=== PATIENT | female | born 1935 | race Two or more races ===

== ENCOUNTER 2024-03-01 12:44 | Emergency (ER) | payer MEDICAID, SELFPAY ==
[2024-03-01 13:05] VITALS: BP 168/85; PULSE 71; RESP 19; TEMP 36.8; O2SAT 98; BMI 23.6
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
== END 2024-03-01 14:59 | disposition home or self-care (01) ==
PROVIDERS: Emergency Provider Emergency Medicine; PCP Family Medicine
DX: S32.592A Other specified fracture of left pubis, initial encounter for closed fracture (principal); S32.591A Other specified fracture of right pubis, initial encounter for closed fracture; S79.922A Unspecified injury of left thigh, initial encounter; S89.92XA Unspecified injury of left lower leg, initial encounter; W19.XXXA Unspecified fall, initial encounter
CPT/HCPCS: 73522; 73552; 73562; 99283

== ENCOUNTER 2024-11-26 09:01 | Outpatient (AMB) | payer MEDICAID, SELFPAY ==
--- NOTE | 2024-11-26 09:20 | ORTHONT_ITS ---
Vital signs 11/26/24 09:23 Height 1.4 m Height Method Measured Weight 39.094 kg Weight Measurement Method Standing Scale BMI 20.0 BP 155/81 H Blood Pressure Source Automatic Cuff Blood Pressure Location Left Upper Arm Position Sitting Respiration 19 Pulse 81 Pulse Source Monitor Temp 96.9 F Temp Source Temporal Artery Scan Pulse Oximetry (%) 94 L Oxygen Delivery Method Room Air Med/Allergies Allergies & Medications Allergies Penicillins Allergy (Severe, Verified 11/26/24 09:23) Hives Medication Reconciliation atorvastatin 40 mg tablet 40 mg PO 1XD 03/18/23 [History Confirmed 11/26/24] calcium 600 mg (as carbonate)-vitamin D3 10 mcg (400 unit) tablet 400 tab PO BIDWMEAL 03/18/23 [History Confirmed 11/26/24] clopidogrel 75 mg tablet 75 mg PO 1XD 03/18/23 [History Confirmed 11/26/24] donepezil 5 mg tablet 5 mg PO HS 03/18/23 [History Confirmed 11/26/24] fenofibrate 160 mg tablet 160 mg PO DAILY 03/18/23 [History Confirmed 11/26/24] hydrochlorothiazide 50 mg tablet 50 mg PO AC 03/18/23 [History Confirmed 11/26/24] isosorbide mononitrate 30 mg tablet,extended release 24 hr 30 mg PO AC 03/18/23 [History Confirmed 11/26/24] levofloxacin 750 mg tablet 750 mg PO 1XD 03/18/23 [History Confirmed 11/26/24] losartan 100 mg tablet 100 mg PO 1XD 03/18/23 [History Confirmed 11/26/24] esomeprazole magnesium 20 mg capsule,delayed release (Nexium) 20 mg PO QDAY #20 caps 11/02/23 [Rx Confirmed 11/26/24] Office Procedures GNS Level of Care Nursing/Assessment Patient Status: Initial/New Patient Nursing Assessment/Reassesment: Medication Reconciliation, Update PMH in EMR and Vital Signs Coordination of Care: Complex Care and Chronic Disease 1-5, Education Complex Pt/Fam, Consent,records obtained, informed consent, 1 Ins Authorization, Results/Orders obtained and Staff clarify orders Special Needs: Language special needs New Patient Charge New Patient Point Assignment: [id number] New Patient Point 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 Level 3 ([id number]) MA Intake Visit Data Collection New Patient or Established: New Patient (never been to [facility]) Reason for Visit:: PUBIC FRACTURE 01/2024 Seen by Clinical Staff ONLY (RN/MA): No Cotton Buyer Required: Yes PCP or OBGYN visit in last 3 months: Yes Hx Now: No Do You Feel Safe at Home: Yes Authorities Contacted: N/A Questionairres Past Medical History Past Medical History Have you ever been diagnosed with any of the following: Neurological Problems Dementia: Yes Cardiology Problems Congestive Heart Failure: No Hypertension: Yes Respiratory Problems Chronic Obstructive Pulmonary Disease (COPD): No Genital/Urinary Problems Renal Disease: No Endocrine Problems Diabetes Mellitus Type 1: No Diabetes Mellitus Type 2: No Subjective Visit Visit for: new patient and hip Immunization / Flu Flu Vaccine in the Last 12 Months: No Flu Vaccine Exclusion Criteria: No Exclusion Criteria History of Present Illness Chief complaint: RIGHT PUBIC FRACTURE Date of injury / onset of symptoms: 01/2024 Personal History Occupation: RETIRED Pain Pain level (0-10): 0 Ambulatory data Ambulatory device: none Treatments Improvement with previous injections: No Improvement with PT: No Improvement with NSAIDS: no Review of Systems Review of Systems: All systems negative unless otherwise noted in HPI.
[2024-11-26 09:23] VITALS: BP 155/81; PULSE 81; RESP 19; TEMP 36.1; O2SAT 94
== END 2024-11-26 09:26 | disposition home or self-care (01) ==
PROVIDERS: PCP Family Medicine; Referring Provider Orthopaedic Surgery Adult Reconstructive Orthopaedic Surgery; Supervising Provider Orthopaedic Surgery Adult Reconstructive Orthopaedic Surgery; Visit Provider Orthopaedic Surgery Adult Reconstructive Orthopaedic Surgery
DX: S32.501A Unspecified fracture of right pubis, initial encounter for closed fracture (principal); X58.XXXA Exposure to other specified factors, initial encounter; I10 Essential (primary) hypertension; F03.90 Unspecified dementia, unspecified severity, without behavioral disturbance, psychotic disturbance, mood disturbance, and anxiety
CPT/HCPCS: 99203; G0463